=== PATIENT | male | born 2000 | race Caucasian/White ===

== ENCOUNTER 2020-02-23 14:12 | Emergency (ER) | payer OTHER ==
[~2020-02-23] VITALS: Ht 182.9 cm; Wt 59.0 kg
[2020-02-23 14:14] VITALS: BP 86/60
--- NOTE | 2020-02-23 14:19 | NUR ---
PT IN WHEELCHAIR TO ER BED 11
--- NOTE | 2020-02-23 14:26 | NUR ---
19 y/o male presents to ED with laceration to lt wrist. Pt states he swung his arm and hit broken glass. Bleeding controlled at this time. 7/10 sharp, burning pain. Skin warm and dry. +CMS, +pulses. States he had last TDAP < 1 yr ago. Positioned for comfort. VSS medhx: seizures
--- NOTE | 2020-02-23 14:29 | NUR ---
Dr Gómez at bedside examining pt
[2020-02-23] MEDS ORDERED: LIDOCAINE MPF 1% 10 MG/ML VIAL INJ ONE (14:30)
[2020-02-23] MEDS ORDERED: BACITRACIN OINT 500 UNITS/GM PKT TP ONE (14:30)
--- NOTE | 2020-02-23 14:38 | NUR ---
DR. POND AT BEDSIDE FOR LAC REPAIR.
[2020-02-23 14:57] VITALS: BP 108/72
--- NOTE | 2020-02-23 14:57 | NUR ---
Patient discharged with v/s stable. Written and verbal after care instructions given and explained. Patient verbalized understanding. Ambulatory with steady gait. All questions addressed prior to discharge. Advised to follow up with PMD.
== END 2020-02-23 14:57 | disposition home or self-care (01) ==
LOC: MED 14:12
DX: S61.512A Laceration without foreign body of left wrist, initial encounter (principal); F17.210 Nicotine dependence, cigarettes, uncomplicated; X58.XXXA Exposure to other specified factors, initial encounter; Y93.89 Activity, other specified; Y92.89 Other specified places as the place of occurrence of the external cause; Y99.8 Other external cause status
CPT/HCPCS: 12001; 99282; J2001

== ENCOUNTER 2020-03-05 17:51 | Emergency (ER) | payer OTHER ==
[~2020-03-05] VITALS: Ht 182.9 cm; Wt 61.2 kg
[2020-03-05 18:04] VITALS: BP 105/62
--- NOTE | 2020-03-05 18:15 | NUR ---
sutures removed by rayna robison
--- NOTE | 2020-03-05 18:19 | NUR ---
PT REQUIRES SUTURE REMOVAL. 4 SUTUTRES PRESENT. CUT L LATERAL SIDE OF HAND ON GLASS 8 DAYS AGO, MILD SWELLING TO SITE. APPEARS TO BE HEALING WELL. PAIN 3/10
[2020-03-05 18:20] VITALS: BP 105/62
--- NOTE | 2020-03-05 18:20 | NUR ---
Patient discharged with v/s stable. Written and verbal after care instructions given and explained. Patient alert, oriented and verbalized understanding of instructions. Ambulatory with steady gait. All questions addressed prior to discharge. ID band removed. Patient advised to follow up with PMD. Rx of Bcitracin given. Patient educated on indication of medication including possible reaction and side effects. Opportunity to ask questions provided and answered.
== END 2020-03-05 18:20 | disposition home or self-care (01) ==
LOC: MED 17:51
DX: S61.412D Laceration without foreign body of left hand, subsequent encounter (principal); X58.XXXD Exposure to other specified factors, subsequent encounter
CPT/HCPCS: 99282